=== PATIENT | male | born 1935 | race Caucasian/White ===

== ENCOUNTER 2016-09-06 08:44 | Day surgery (SDC) | payer OTHER ==
[2016-08-31 10:58] VITALS: BMI 37.2
[2016-09-06] MEDS ORDERED: PROPOFOL 20 ML ONE ×2 (08:47)
[2016-09-06 09:16] VITALS: TEMP 98.4
[2016-09-06 11:40] VITALS: PULSE 51
[2016-09-06 11:42] VITALS: BP 130/70
== END 2016-09-06 11:10 | disposition home or self-care (01) ==
LOC: FASU-ENDO 08:44
PROVIDERS: ATTEND Internal Medicine Gastroenterology
PROC: 0DJD8ZZ Inspection of Lower Intestinal Tract, Via Natural or Artificial Opening Endoscopic (ICD-10-PCS; principal; 2016-09-06 09:49)
DX: Z86.010 Personal history of colon polyps (principal)